=== PATIENT | male | born 1960 | race Caucasian/White ===

== ENCOUNTER 2021-10-31 15:04 | Inpatient (IN) | payer OTHER, SELFPAY ==
[2021-10-31 15:22] VITALS: BMI 30.1
[2021-10-31 16:11] VITALS: BP 130/60; PULSE 79; RESP 17; TEMP 36.6; O2SAT 96
[2021-10-31 19:23] VITALS: O2SAT 99
[2021-10-31 21:08] VITALS: BP 163/67; PULSE 82; RESP 18; TEMP 36.3; O2SAT 98
[2021-10-31] MEDS: MELATONIN 3 MG TABLET 9 MG PO (21:17)
[2021-10-31] MEDS: Enoxaparin 30 MG/0.3 ML Syringe SC (21:17)
[2021-10-31] MEDS: traMADol 50 MG Tablet PO (21:17)
[2021-10-31] MEDS: Acetaminophen 500 MG Tablet 1000 MG PO (21:18)
--- NOTE | 2021-11-01 03:01 | NURSING ---
during initial skin assessment pts walking boot was taken off and dressing to the rt foot was noted to be saturated with black discoloration from boot. pt reports that the dressing had not been changed since friday. old dressing removed and foot was noted to be white in color and moist and cool to the touch, sutures to the outer foot were intact with active dripping noted coming from the back of the heel. supervisor multifocal lens notified and came to see foot. pt reports that his feet are always cold and pedal pulses were noted. area cleansed with ns and dsd applied and walking boot left off at this time d/t being wet on the inside from previous dressing. feet and legs elevated. dressing on the top of left foot also changed d/t saturation as well to the lt deltoid and incisions to the left hip, all area cleansed with ns and dsd applied .
[2021-11-01] MEDS: Acetaminophen 500 MG Tablet 1000 MG PO ×3 (05:25→21:11)
[2021-11-01 06:00] LABS: Absolute Lymphocyte Count 1.79 X10^3/uL (0.83-4.51); Absolute Neutrophil Count 4.9 X10^3/uL (2.0-7.7); Basophil# 0.03 X10^3/uL; Basophil% 0.4 % (0-1); Eosinophil# 0.59 X10^3/uL; Eosinophils% 7.1 % (0-5); Hematocrit 26.2 % (40-54); Hemoglobin 8.5 g/dL (13.0-16.5); Lymphocyte # 1.79 X10^3/ul (0.83-4.51); Lymphocyte % 21.4 % (19-41); Mean Corp Hgb Conc 32.4 g/dL (32-36); Mean Corpuscular Hgb 31.3 pg (27.0-32.0); Mean Corpuscular Volume 96.3 fL (80-94); Monocyte# 0.71 X10^3/uL; Monocyte% 8.5 % (0-10); NRBC Flagged by Analyzer 0.4 % (0-5); Neutrophil # 4.91 X10^3/uL (2.7-7.7); Neutrophil % 58.8 % (47-70); Platelet Count 296 K/mm3 (150-450); RBC Distribution Width CV 15.4 % (11.6-14.6); Red Blood Count 2.72 M/mm3 (4.6-6.2); White Blood Count 8.4 K/mm3 (4.4-11.0)
[2021-11-01 06:33] LABS: ALB/GLOB Ratio 0.8 RATIO (0.9-2.4); AST(SGOT) 84 U/L (15-37); Alanine Aminotransfer ALT/SGPT 82 U/L (16-61); Albumin, Serum 2.7 g/dL (3.2-5.0); Alkaline Phosphatase 67 U/L (45-117); Anion Gap 5 (5-15); BUN 28 mg/dL (7-18); Calcium,Total 8.6 mg/dL (8.5-10.1); Chloride 105 mmol/L (98-107); Creatinine, Serum 1.22 mg/dL (0.70-1.30); EST Glomerular Filtration Rate 64 mL/min (>60); Est Glom Filt Rate - Afr Amer 77 mL/min (>60); Estimated Creatinine Clearance 60.74 ml/min; Globulin 3.3 g/dL (2.2-4.2); Glucose 137 mg/dL (74-106); Magnesium 2.3 mg/dL (1.6-2.6); Potassium 3.8 mmol/L (3.5-5.1); Sodium Level 137 mmol/L (136-145)
[2021-11-01 08:31] VITALS: BP 139/55; PULSE 78; RESP 16; TEMP 36.4; O2SAT 98
[2021-11-01] MEDS: Enoxaparin 30 MG/0.3 ML Syringe SC ×2 (08:43→21:12)
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
[2021-11-01] MEDS: traMADol 50 MG Tablet PO (10:50)
[2021-11-01 11:27] LABS: Cholesterol 151 mg/dL (200); High Density Lipoprotein 34 mg/dL; Triglycerides 232 mg/dL; Very Low Density Lipoprotein 46 mg/dL (5-40)
[2021-11-01 11:31] LABS: Hemoglobin A1c 6.3 % (3.8-5.6)
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
[2021-11-01] MEDS: MELATONIN 3 MG TABLET 9 MG PO (21:11)
[2021-11-01] MEDS: traMADol 50 MG Tablet 100 MG PO (21:14)
[2021-11-01] MEDS: traZODone 50 MG Tablet PO (21:47)
[2021-11-01 22:00] VITALS: BP 150/53; PULSE 82; RESP 16; TEMP 36.6; O2SAT 97
[2021-11-02] MEDS: Acetaminophen 500 MG Tablet 1000 MG PO ×3 (05:53→21:23)
[2021-11-02 07:32] VITALS: BP 137/59; PULSE 79; RESP 16; TEMP 36.7; O2SAT 95
[2021-11-02] MEDS: Enoxaparin 30 MG/0.3 ML Syringe SC ×2 (08:19→21:23)
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
[2021-11-02 19:01] VITALS: BP 159/75; PULSE 90; RESP 16; TEMP 37; O2SAT 98
[2021-11-02] MEDS: traMADol 50 MG Tablet 100 MG PO (21:23)
[2021-11-02] MEDS: traZODone 50 MG Tablet PO (21:31)
[2021-11-03] MEDS: traMADol 50 MG Tablet PO ×2 (05:29→11:29)
[2021-11-03] MEDS: Acetaminophen 500 MG Tablet 1000 MG PO ×3 (05:29→22:01)
[2021-11-03 08:06] VITALS: BP 130/53; PULSE 72; RESP 12; TEMP 36; O2SAT 97
[2021-11-03] MEDS: Enoxaparin 30 MG/0.3 ML Syringe SC ×2 (09:21→22:01)
[2021-11-03 15:00] VITALS: O2SAT 97
[2021-11-03 19:28] VITALS: BP 139/64; PULSE 78; RESP 18; TEMP 36.7; O2SAT 98
[2021-11-03] MEDS: Senna/Docusate Sodium 1 Tablet 2 TABLET PO (20:07)
[2021-11-03] MEDS: traMADol 50 MG Tablet 100 MG PO (20:10)
[2021-11-03 22:00] VITALS: RESP 18; O2SAT 98
[2021-11-03] MEDS: traZODone 50 MG Tablet PO (22:01)
--- NOTE | 2021-11-04 03:41 | NURSING ---
Reviewed and agree with SPINNERET PERSON documentation and assessment charting.
[2021-11-04] MEDS: Acetaminophen 500 MG Tablet 1000 MG PO ×3 (05:51→21:56)
--- NOTE | 2021-11-04 05:58 | NURSING ---
Pt c/o bandage on left forearm being too tight. This nurse observed bandage; left hand slightly swollen. Pt states not painful but not comfortable. Bandage removed; Kerlix still intact.
[2021-11-04 07:16] VITALS: BP 122/49; PULSE 77; RESP 16; TEMP 36.6; O2SAT 96
[2021-11-04] MEDS: Enoxaparin 30 MG/0.3 ML Syringe SC ×2 (08:01→21:56)
[2021-11-04 18:54] VITALS: BP 142/62; PULSE 84; RESP 16; TEMP 36.7; O2SAT 97
[2021-11-04] MEDS: traMADol 50 MG Tablet 100 MG PO (21:47)
[2021-11-04 22:00] VITALS: PULSE 84; RESP 16; O2SAT 97
[2021-11-04] MEDS: traZODone 50 MG Tablet PO (22:12)
[2021-11-05] MEDS: Acetaminophen 500 MG Tablet 1000 MG PO ×3 (05:55→21:49)
[2021-11-05 08:00] VITALS: BP 149/53; PULSE 80; RESP 16; TEMP 36.3; O2SAT 97
[2021-11-05] MEDS: Enoxaparin 30 MG/0.3 ML Syringe SC ×2 (08:22→21:49)
[2021-11-05] MEDS: traMADol 50 MG Tablet PO (09:25)
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
--- NOTE | 2021-11-05 12:49 | CASEMGMT ---
Social Work IDT met with patient for Team meeting. Discussed patient's progress in PT/OT/ST/SN. Pt making progress. Explained [facility] CM insurance with NRD 11/06 and continued stay is not guaranteed with each review. The goal is for pt to return home alone. Pt is needing assistance with LE care. Pt does not have family that can assist with physical tasks at DC. SW to order continued therapy or any DME needed. Will ReTeam next week. SW to continue to follow. Sandra Kelly, RACING CAR DRIVER CIRCULATION ANALYST
[2021-11-05 19:37] VITALS: BP 156/58; PULSE 97; RESP 20; TEMP 36.7; O2SAT 97
[2021-11-05] MEDS: traMADol 50 MG Tablet 100 MG PO (21:49)
[2021-11-05] MEDS: traZODone 100 MG Tablet PO (21:49)
--- NOTE | 2021-11-06 03:29 | NURSING ---
Reviewed and agree with MACHINING ASSOCIATE documentation and assessment charting.
[2021-11-06] MEDS: Acetaminophen 500 MG Tablet 1000 MG PO ×3 (05:49→21:04)
[2021-11-06 07:10] VITALS: BP 128/49; PULSE 83; RESP 18; TEMP 36.5; O2SAT 97
[2021-11-06] MEDS: Enoxaparin 30 MG/0.3 ML Syringe SC ×2 (10:37→21:07)
[2021-11-06] MEDS: Senna/Docusate Sodium 1 Tablet 2 TABLET PO (17:19)
[2021-11-06 20:41] VITALS: BP 145/60; PULSE 87; RESP 12; TEMP 36.9; O2SAT 96
[2021-11-06] MEDS: traMADol 50 MG Tablet 100 MG PO (20:52)
[2021-11-06] MEDS: traZODone 100 MG Tablet PO (21:04)
[2021-11-07] MEDS: Acetaminophen 500 MG Tablet 1000 MG PO ×3 (05:40→21:34)
[2021-11-07] MEDS: traMADol 50 MG Tablet PO (06:56)
[2021-11-07 07:53] VITALS: BP 139/64; PULSE 80; RESP 16; TEMP 36.4; O2SAT 97
--- NOTE | 2021-11-07 09:01 | NURSING ---
Spoke with Nicolle at Dr Zacarias office-can remove josé miguel to Lt hip and sutures to Rt ankle, Forearm and scalp.
[2021-11-07] MEDS: Enoxaparin 30 MG/0.3 ML Syringe SC ×2 (10:55→21:35)
--- NOTE | 2021-11-07 11:50 | WOUNDNOTE ---
wound photo: right medial malleolus
--- NOTE | 2021-11-07 11:50 | NURSING ---
Dorothy removed from Lt leg ([id number] [id number])Scant drainage noted left CRISTI. Stitches removed from Lt forearm and left OFFICE ASST. No drainage. Stitches removed from scalp, left OFFICE ASST, no drainage noted. Sutures removed from Rt medial ankle, no drainage noted. Steristrips applied for additional support d/t localized inflammation.
[2021-11-07] MEDS: traMADol 50 MG Tablet 100 MG PO (21:34)
[2021-11-07] MEDS: traZODone 100 MG Tablet PO (21:34)
[2021-11-07 22:00] VITALS: BP 143/55; PULSE 84; RESP 16; TEMP 36.2; O2SAT 95
[2021-11-08] MEDS: Acetaminophen 500 MG Tablet 1000 MG PO ×3 (05:19→20:56)
[2021-11-08 07:29] VITALS: BP 120/54; PULSE 73; RESP 16; TEMP 36.4; O2SAT 96
[2021-11-08] MEDS: Enoxaparin 30 MG/0.3 ML Syringe SC ×2 (09:47→20:57)
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
[2021-11-08 19:24] VITALS: BP 160/74; PULSE 85; RESP 16; TEMP 36.7; O2SAT 98
[2021-11-08] MEDS: traZODone 100 MG Tablet PO (20:56)
[2021-11-08] MEDS: traMADol 50 MG Tablet 100 MG PO (20:57)
[2021-11-09] MEDS: Acetaminophen 500 MG Tablet 1000 MG PO ×3 (05:47→22:46)
[2021-11-09 07:47] VITALS: BP 156/64; PULSE 70; RESP 17; TEMP 36.6; O2SAT 96
[2021-11-09] MEDS: Enoxaparin 30 MG/0.3 ML Syringe SC ×2 (09:58→22:47)
--- NOTE | 2021-11-09 15:30 | CASEMGMT ---
Addendum entered by Sandra Kelly 11/09/21 16:34: [facility] ran insurance benefits - pt only receives 60 visits per calendar year and has 20% copays. Spoke with pt to update and discussed needed disciplines. Pt states he does not need ST or SW. Confirmed with WINDMILL TECHNICIAN and Updated [facility] order. Original Note: Social Work Met with patient about DC plans. Explained NRD 11/13 and DC date will most likely be issued. Pt agreeable to DC 11/14. Pt is currently having hand rails and grab bars installed in his home and needs that time to complete. Pt requesting FWW. Referral made to [facility]. Pt requesting [facility]. Provided [facility] list of providers including quality and resource use data and consistent with the patient?s preferred geographic region, medical needs, and insurance network. Pt prefers [facility]. Referral made for PT/OT/ST/SN/SW. Pt requesting w/c transport at [place]. SW to schedule through [facility]. Plan: DC home alone 11/14, [facility] PT/OT/ST/SN/SW, FWW Sandra Kelly ,PREFLIGHT INSPECTOR LEGAL DIRECTOR
[2021-11-09 19:26] VITALS: BP 126/54; PULSE 78; RESP 16; TEMP 36.8; O2SAT 96
[2021-11-09 19:28] VITALS: RESP 16; O2SAT 97
[2021-11-09] MEDS: traZODone 100 MG Tablet PO (22:46)
[2021-11-09] MEDS: traMADol 50 MG Tablet 100 MG PO (22:46)
[2021-11-10] MEDS: Acetaminophen 500 MG Tablet 1000 MG PO ×3 (05:46→21:21)
[2021-11-10] MEDS: Enoxaparin 30 MG/0.3 ML Syringe SC ×2 (08:55→21:21)
[2021-11-10] MEDS: traMADol 50 MG Tablet PO (09:00)
[2021-11-10 10:00] VITALS: BP 153/53; PULSE 74; RESP 16; TEMP 35.6; O2SAT 96
[2021-11-10 21:10] VITALS: PULSE 76; RESP 16; O2SAT 97
[2021-11-10] MEDS: traMADol 50 MG Tablet 100 MG PO (21:20)
[2021-11-10] MEDS: traZODone 100 MG Tablet PO (21:21)
[2021-11-10 22:00] VITALS: BP 145/61; PULSE 77; RESP 16; TEMP 36.8; O2SAT 98
[2021-11-11] MEDS: Acetaminophen 500 MG Tablet 1000 MG PO ×3 (06:09→21:14)
[2021-11-11 08:04] VITALS: BP 126/46; PULSE 84; RESP 16; TEMP 36.3; O2SAT 96
[2021-11-11] MEDS: Enoxaparin 30 MG/0.3 ML Syringe SC ×2 (08:24→21:14)
[2021-11-11 20:40] VITALS: O2SAT 97
[2021-11-11] MEDS: traMADol 50 MG Tablet 100 MG PO (21:13)
[2021-11-11] MEDS: traZODone 100 MG Tablet PO (21:14)
[2021-11-11 21:16] VITALS: BP 139/65; PULSE 83; RESP 18; TEMP 36.9; O2SAT 97
[2021-11-12] MEDS: Acetaminophen 500 MG Tablet 1000 MG PO ×3 (05:44→19:52)
[2021-11-12] MEDS: traMADol 50 MG Tablet PO (07:04)
[2021-11-12 09:08] VITALS: BP 142/55; PULSE 76; RESP 20; TEMP 36.4; O2SAT 97
[2021-11-12] MEDS: Enoxaparin 30 MG/0.3 ML Syringe SC ×2 (09:27→19:51)
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
--- NOTE | 2021-11-12 13:23 | CASEMGMT ---
Social Work IDT met with patient for Team meeting. Discussed patient's progress in PT/OT/SN. Confirmed DC date 11/14, home, with [facility] PT/OT/SN, FWW. No other needs. Sandra Kelly, [employer] HELPER SPEECH AND LANGUAGE TUTOR
[2021-11-12 19:25] VITALS: BP 140/76; PULSE 85; RESP 16; TEMP 36.2; O2SAT 97
[2021-11-12] MEDS: traZODone 100 MG Tablet PO (19:51)
[2021-11-12] MEDS: traMADol 50 MG Tablet 100 MG PO (19:51)
--- NOTE | 2021-11-13 02:33 | NURSING ---
Reviewed and agree with FOLLOW UP SPECIALIST documentation and assessment charting.
[2021-11-13] MEDS: Acetaminophen 500 MG Tablet 1000 MG PO ×3 (05:06→21:31)
[2021-11-13 05:42] LABS: Hematocrit 36.5 % (40-54); Hemoglobin 11.4 g/dL (13.0-16.5); Mean Corp Hgb Conc 31.2 g/dL (32-36); Mean Corpuscular Hgb 31.8 pg (27.0-32.0); Mean Platelet Vol. 7.9 fl (6.2-12.0); Platelet Count 534 K/mm3 (150-450); RBC Distribution Width CV 17.2 % (11.6-14.6); RBC Distribution Width SD 63.4 fl (35.1-43.9); Red Blood Count 3.58 M/mm3 (4.6-6.2); White Blood Count 4.9 K/mm3 (4.4-11.0)
[2021-11-13 06:11] LABS: Anion Gap 8 (5-15); BUN 21 mg/dL (7-18); BUN/Creat Ratio 16.7 RATIO (10-20); Calcium,Total 9.7 mg/dL (8.5-10.1); Chloride 103 mmol/L (98-107); Creatinine, Serum 1.26 mg/dL (0.70-1.30); EST Glomerular Filtration Rate 61 mL/min (>60); Est Glom Filt Rate - Afr Amer 74 mL/min (>60); Estimated Creatinine Clearance 58.06 ml/min; Glucose 125 mg/dL (74-106); Sodium Level 137 mmol/L (136-145)
[2021-11-13 07:20] VITALS: BP 132/80; PULSE 77; RESP 17; TEMP 36.9; O2SAT 96
[2021-11-13] MEDS: traMADol 50 MG Tablet PO (07:43)
[2021-11-13] MEDS: Enoxaparin 30 MG/0.3 ML Syringe SC ×2 (09:57→21:30)
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
[2021-11-13 19:18] VITALS: BP 113/59; PULSE 77; RESP 18; TEMP 36.7; O2SAT 96
[2021-11-13] MEDS: traMADol 50 MG Tablet 100 MG PO (21:30)
[2021-11-13] MEDS: traZODone 100 MG Tablet PO (21:30)
[2021-11-14] MEDS: Acetaminophen 500 MG Tablet 1000 MG PO (05:25)
[2021-11-14 08:00] VITALS: BP 151/70; PULSE 77; RESP 18; TEMP 36.4; O2SAT 97
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
--- NOTE | 2021-11-14 14:38 | NURSING ---
Discharged home via transport. discharged instruction, medications, dressing change and appointments reviewed with pt, denies questions or concerns
[2021-11-14 14:39] VITALS: BP 151/70; PULSE 77; RESP 18; TEMP 36.4; O2SAT 97
== END 2021-11-14 14:40 | disposition home health service (06) | DRG 560 ==
PROVIDERS: Admitting Provider Internal Medicine; Visit Provider Internal Medicine
DX: S72.352D Displaced comminuted fracture of shaft of left femur, subsequent encounter for closed fracture with routine healing (principal); D62 Acute posthemorrhagic anemia; E11.22 Type 2 diabetes mellitus with diabetic chronic kidney disease; K76.0 Fatty (change of) liver, not elsewhere classified; E11.65 Type 2 diabetes mellitus with hyperglycemia; N18.2 Chronic kidney disease, stage 2 (mild); R03.0 Elevated blood-pressure reading, without diagnosis of hypertension; F98.8 Other specified behavioral and emotional disorders with onset usually occurring in childhood and adolescence; S22.31XD Fracture of one rib, right side, subsequent encounter for fracture with routine healing; V89.2XXD Person injured in unspecified motor-vehicle accident, traffic, subsequent encounter; S01.01XD Laceration without foreign body of scalp, subsequent encounter; S51.812D Laceration without foreign body of left forearm, subsequent encounter; S91.012D Laceration without foreign body, left ankle, subsequent encounter; S40.012D Contusion of left shoulder, subsequent encounter; Z79.899 Other long term (current) drug therapy
CPT/HCPCS: 36415; 80048; 80053; 80061; 83036; 83735; 84100; 85025; 85027; 92507; 96125; 97110; 97116; 97129; 97130; 97162; 97167; 97530; 97535; 97802; 97803; 99251; G0463